=== PATIENT | female | born 1995 | race African-American/Black ===

== ENCOUNTER 2018-02-09 18:45 | Emergency (ER) | payer BC, MEDICAID ==
[~2018-02-09] VITALS: Ht 154.9 cm; Wt 52.2 kg
[~2018-02-09 18:45] MED LIST: ACETAMINOPHEN-1 EAC1 ORAL; KEFLEX500 MG ORAL; NKM; ZOFRAN ODT4 MG ORAL
[2018-02-09] MEDS ORDERED: oxyCODONE HCL/Acetaminophen 5/325mg ORAL ONE (19:30)
[2018-02-09] MEDS ORDERED: CEPHALEXIN500 MG ORAL (19:57)
--- NOTE | 2018-02-09 20:03 | Emergency Room Report ---
History of Present Illness General Chief Complaint: Headache Source: Patient Present Illness HPI 22-year-old female presents with swelling just under her chin first noticed over the last day or 2, reports it's not very painful, there is no redness, she has no oral pain or dental pain, she denies fevers, dysphagia, odynophagia, but does report she is having low-grade frontal and a similar headache she's not try medications for her symptoms. Allergies: Coded Allergies: No Known Allergies (Unverified , 11/23/12) Patient History Past Medical History: see triage record Last Menstrual Period: 01/11/17 Reviewed Nursing Documentation: PMH: Agreed; PSxH: Agreed Nursing Documentation-PMH Past Medical History: No Stated History Review of Systems All Other Systems: negative except mentioned in HPI Physical Exam Vital Signs Date Time Temp Pulse Resp B/P (MAP) Pulse Ox O2 Delivery O2 Flow Rate FiO2 02/09/18 18:49 98.0 81 18 101/64 96 Room Air 98.1 Sp02 EP Interpretation: reviewed, normal General Appearance: no apparent distress, alert, non-toxic Head: normocephalic Eyes: bilateral eye normal inspection, bilateral eye PERRL, bilateral eye EOMI ENT: normal ENT inspection, hearing grossly normal, normal pharynx, no angioedema, normal voice, TMs + canals normal, uvula midline, moist mucus membranes, other - 1 cm area palpable nodule just proximal to the mentum, Nonfluctuant, nontender, no erythema; normal dentition Neck: normal inspection, full range of motion, supple, supple/symm/no masses Respiratory: chest non-tender, lungs clear, normal breath sounds, chest symmetrical, palpation of chest normal Cardiovascular #1: normal peripheral pulses, regular rate, rhythm Cardiovascular #2: 2+ radial (R), 2+ radial (L) Gastrointestinal: normal inspection, non tender, soft, no mass, no guarding, no rebound Rectal: deferred Genitourinary: normal inspection, no CVA tenderness Musculoskeletal: back normal, gait/station normal, normal range of motion, non- tender, no calf tenderness Neurologic: alert, responsive, teletype telegrapher III-XII nml as tested, motor strength/tone normal, sensory intact, speech normal Psychiatric: judgement/insight normal, memory normal, mood/affect normal, no suicidal/homicidal ideation Skin: normal color, no rash, warm/dry, normal turgor Lymphatic: no adenopathy Medical Decision Making Diagnostic Impression: Primary Impression: Salivary gland calculus Additional Impression: Headache ER Course Patient with possible sialolith, was warned about possible sialoadenitis, and instructed to follow-up with PMD if the area became progressively swollen or enlarged. Given antibiotics, Keflex, to try if sialagogues such as [place] did not work did not work, but patient would pump and dump as she is breast- feeding if need be. Do not suspect serious headache etiology, as her headache is only mild to moderate intensity. She has a normal neuro exam. Will DC as mentioned and follow-up with PMD recommended. Last Vital Signs Date Time Temp Pulse Resp B/P (MAP) Pulse Ox O2 Delivery O2 Flow Rate FiO2 02/09/18 18:49 98.0 81 18 101/64 96 Room Air 98.1 Disposition: HOME, SELF-CARE Condition: Stable Scripts Cephalexin* (KEFLEX*) 500 Mg Capsule 500 MG ORAL EVERY 6 HOURS for 7 Days, CAP Prov: LEX LUEVANO M.D 02/09/18 Patient Instructions: Salivary Stone LEX LUEVANO M.D Feb 09, 2018 20:03
[2018-02-09 20:14] VITALS: BP 101/64
== END 2018-02-09 20:14 | disposition home or self-care (01) ==
LOC: EMR 19:42
DX: K11.5 Sialolithiasis (principal); R51 Headache
CPT/HCPCS: 99282

== ENCOUNTER 2018-12-09 16:16 | Emergency (ER) | payer BC, MEDICAID ==
[~2018-12-09] VITALS: Ht 154.9 cm; Wt 46.7 kg
[~2018-12-09 16:16] MED LIST changes: +CEPHALEXIN500 MG ORAL
--- NOTE | 2018-12-09 16:29 | NUR ---
ED Nurse Note: Patient present at ER c/o Lt ankle pain 8/10 since she fell from stairs this morning. edema on Lt ankle noted. pt aao x4 and calm and cooperative. skin clean and intact. pt denied head injury from the fall.
--- NOTE | 2018-12-09 16:37 | Emergency Room Report ---
History of Present Illness General Chief Complaint: Lower Extremity Injury Source: Patient Present Illness HPI 23-year-old female presents to the emergency department complaining of 8 out of 10 in severity localized pain, swelling, tenderness to the lateral aspect of the left ankle status post mechanical trip and fall this morning. Pt. denies hitting her head or having a loss of consciousness. Patient denies midline neck or back pain. Patient denies open wounds or bleeding. Patient reports her pain is exacerbated on attempts to weight-bear or ambulate. No relieving factors at this time.Denies numbness tingling or loss of sensation or gross motor movements of the extremities, incontinence of bowel or bladder. Denies CP , Palpitations, LOC, AMS, dizziness, Changes in Vision, weakness or a sudden severe headache. Allergies: Coded Allergies: No Known Allergies (Unverified , 11/23/12) Patient History Past Medical History: see triage record Past Surgical History: none Pertinent Family History: none Last Menstrual Period: 11/2018 Now: No Reviewed Nursing Documentation: PMH: Agreed; PSxH: Agreed Nursing Documentation-PMH Past Medical History: No Stated History Review of Systems All Other Systems: negative except mentioned in HPI Physical Exam Vital Signs Date Time Temp Pulse Resp B/P (MAP) Pulse Ox O2 Delivery O2 Flow Rate FiO2 12/09/18 16:20 98.1 76 20 107/67 96 Room Air Sp02 EP Interpretation: reviewed, normal General Appearance: no apparent distress, alert, GCS 15, non-toxic Head: normocephalic, atraumatic Eyes: bilateral eye normal inspection, bilateral eye PERRL ENT: hearing grossly normal, normal voice Neck: full range of motion Respiratory: lungs clear, normal breath sounds, speaking full sentences Cardiovascular #1: regular rate, rhythm, normal capillary refill Cardiovascular #2: 2+ dorsalis pedis (R), 2+ dorsalis pedis (L) Musculoskeletal: back normal, gait/station normal, normal range of motion, swelling - lateral left ankle, tender - lateral left ankle Neurologic: alert, oriented x3, responsive, motor strength/tone normal, sensory intact, speech normal, grossly normal Psychiatric: judgement/insight normal Skin: normal color, no rash, warm/dry, well hydrated Medical Decision Making PA Attestation Dr. dennis is my supervising Physician whom patient management has been discussed with. Diagnostic Impression: Primary Impression: Left ankle sprain Qualified Codes: S93.402A - Sprain of unspecified ligament of left ankle, initial encounter ER Course 23-year-old female presents to the emergency department complaining of 8 out of 10 in severity localized pain, swelling, tenderness to the lateral aspect of the left ankle status post mechanical trip and fall this morning. Pt. denies hitting her head or having a loss of consciousness. Patient denies midline neck or back pain. Patient denies open wounds or bleeding. Patient reports her pain is exacerbated on attempts to weight-bear or ambulate. No relieving factors at this time.Denies numbness tingling or loss of sensation or gross motor movements of the extremities, incontinence of bowel or bladder. Denies CP , Palpitations, LOC, AMS, dizziness, Changes in Vision, weakness or a sudden severe headache. Ddx considered but are not limited to Fracture, dislocation, contusion, Sprain/ Strain/Spasm. Vital signs: are WNL, pt. is afebrile H&PE are most consistent with musculoskeletal injury will perform imaging to r/ o fractures/dislocations. ORDERS: - X-ray Left ankle 3 views - negative for fx, Dislocation, or significant soft tissue injury, per preliminary read in ED, and signed by MIRA Joy , my supervising physician has reviewed, and agrees with my interpretation. ED INTERVENTIONS: - Tylenol PO -Sacha wrap applied by outboard technician. Pt. remains neurovascularly intact. -Patient is provided with crutches and instructed on their use DISCHARGE: At this time pt. is stable for d/c to home. Will provide printed patient care instructions, and any necessary prescriptions. Care plan and follow up instructions have been discussed with the patient prior to discharge. Other X-Ray Diagnostic Results Other X-Ray Diagnostic Results : X-Ray ordered: Left ankle # of Views/Limited Vs Complete: 3 View Indication: Pain EP Interpretation: Yes MIRA Xray: Interpretation reviewed, by supervising MD, and agrees with findings. Interpretation: no dislocation, no soft tissue swelling, no fractures Impression: No acute disease Electronically Signed by: Sania Joy PA-C Last Vital Signs Date Time Temp Pulse Resp B/P (MAP) Pulse Ox O2 Delivery O2 Flow Rate FiO2 12/09/18 16:20 98.1 76 20 107/67 96 Room Air Status: improved Disposition: HOME, SELF-CARE Condition: Stable Scripts Acetaminophen* (TYLENOL EXTRA STRENGTH*) 500 Mg Tablet 500 MG ORAL Q6H, #20 TAB 0 Refills Prov: Sania Joy 12/09/18 Patient Instructions: Ankle Sprain Additional Instructions: Take medications as directed. Follow up with a Primary Care Provider in 3-5 days, even if your symptoms have resolved. --Please review list of primary care clinics, if you do not already have a primary care provider Return sooner to ED if new symptoms occur, or current symptoms become worse. - Please note that this Emergency Department Report was dictated using [employer] support staff member technology software, occasionally this can lead to erroneous entry secondary to interpretation by the dictation equipment. Sania Joy December 09, 2018 16:37
--- NOTE | 2018-12-09 17:02 | Diagnostic Imaging Report ---
Indication: Ankle pain, status post fall from stairs Technique: 3 views of the left ankle Comparison: none Findings: No acute fractures. No dislocations. The joint spaces are preserved Impression: Negative
[2018-12-09] MEDS ORDERED: TYLENOL EXTRA500 MG ORAL (17:04)
--- NOTE | 2018-12-09 17:20 | NUR ---
ED Nurse Note: Sacha wrap and crutches are provided with instruction.
[2018-12-09 17:25] VITALS: BP 121/75
--- NOTE | 2018-12-09 17:26 | NUR ---
ER DISCHARGE NOTE: Patient is cleared to be discharged per ERPA after mell wrap and crutches provided, pt is aox4, on room air, with stable vital signs. pt was given dc and prescription instructions, pt was able to verbalize understanding, pt id band removed. pt is able to ambulate with steady gait. pt took all belongings.
== END 2018-12-09 17:25 | disposition home or self-care (01) ==
LOC: EMR 16:32
DX: S93.402A Sprain of unspecified ligament of left ankle, initial encounter (principal); W19.XXXA Unspecified fall, initial encounter; Y92.9 Unspecified place or not applicable
CPT/HCPCS: 99283